=== PATIENT | male | born 1970 | race African-American/Black ===

== ENCOUNTER 2017-10-21 09:53 | Emergency (ER) | payer OTHER ==
[2017-10-21] MEDS ORDERED: Ketorolac Tromethamine 60 MG/2 ML VIAL ONE (10:30)
--- NOTE | 2017-10-21 11:02 | CT ---
CT CERVICAL SPINE WITHOUT CONTRAST: History: Trauma. Comparison: None. FINDINGS: The odontoid process is intact. The occipital condyles are intact. No fracture or malalignment. Bridg ing anterior osteophyte at C4-5. Lung apices are clear. Thyroid is unremarkable. Paraspinal soft tissues are normal. IMPRESSION: No acute fracture or malalignment of the cervical spine. POS: [facility]
--- NOTE | 2017-10-21 11:12 | CT ---
CT HEAD NONCONTRAST: History: Headache. FINDINGS: No comparison. There is no evidence of acute intracranial hemorrhage or infarct. The ventricles appea r normal in size, shape and position. There is no mass effect or shift of midline structures. The rig ht frontal sinus cell is opacified with homogeneous soft tissue density. IMPRESSION: 1. No acute intracranial abnormalities are demonstrated. 2. Right frontal sinusitis. POS: [facility]
== END 2017-10-21 11:21 | disposition home or self-care (01) ==
LOC: NAV ERS 09:53
DX: S06.0X9A Concussion with loss of consciousness of unspecified duration, initial encounter (principal); S16.1XXA Strain of muscle, fascia and tendon at neck level, initial encounter; I10 Essential (primary) hypertension; Z79.899 Other long term (current) drug therapy; V89.2XXA Person injured in unspecified motor-vehicle accident, traffic, initial encounter
CPT/HCPCS: 70450; 72125; 96372; J1885